=== PATIENT | male | born 1965 | race Caucasian/White ===

== ENCOUNTER 2022-03-13 05:20 | Day surgery (SDC) | payer MEDICAID, OTHER ==
[~2022-03-13] VITALS: Ht 177.8 cm; Wt 86.2 kg
[2022-03-13] MEDS ORDERED: MIDAZOLAM HCL 5 MG/5 ML VIAL ONE ×2 (08:08→08:41)
[2022-03-13] MEDS ORDERED: MEPERIDINE 100 MG INJ. 100 MG/ML VIAL ONE ×2 (08:08→08:44)
[2022-03-13] MEDS ORDERED: DIPHENHYDRAMINE INJ 50 MG/ML VIAL ONE (08:34)
[2022-03-13] MEDS ORDERED: ONDANSETRON HCL 4 MG/2 ML VIAL ONE (08:44)
[2022-03-13 12:47] VITALS: BP_SYST 137
== END 2022-03-13 10:45 | disposition home or self-care (01) ==
LOC: SMU 05:20 → SDS 05:20
PROVIDERS: ATTEND Internal Medicine
DX: Z09 Encounter for follow-up examination after completed treatment for conditions other than malignant neoplasm (principal); D12.0 Benign neoplasm of cecum; K52.9 Noninfective gastroenteritis and colitis, unspecified; K50.90 Crohn's disease, unspecified, without complications; K65.1 Peritoneal abscess; K63.2 Fistula of intestine; K64.8 Other hemorrhoids; Z20.822 Contact with and (suspected) exposure to COVID-19; Z79.899 Other long term (current) drug therapy
CPT/HCPCS: 45380; 87426; 36415; 88305; 99153; 99152; G0378; J1200; J2250; J2405; J2175